=== PATIENT | female | born 2000 | race Two or more races ===

== ENCOUNTER 2023-12-21 11:52 | Emergency (ER) | payer OTHER ==
[2023-12-21 11:59] VITALS: BP 110/64; PULSE 74; RESP 16; TEMP 98.4; BMI 36.0
[2023-12-21] MEDS ORDERED: IBUPROFEN 600 MG TABLET (FP) PO ONE (12:21)
[2023-12-21] MEDS ORDERED: CLINDAMYCIN HCL 150 MG CAPSULE (FP) ONE (12:22)
[2023-12-21] MEDS: IBUPROFEN 600 MG TABLET (FP) PO ONE (12:26)
[2023-12-21] MEDS: CLINDAMYCIN HCL 300 MG CAPSULE PO ONE (12:26)
== END 2023-12-21 12:48 | disposition home or self-care (01) ==
LOC: JERFT 11:52
DX: K08.89 Other specified disorders of teeth and supporting structures (principal)
CPT/HCPCS: 99283-25